=== PATIENT | male | born 1965 | race Caucasian/White ===

== ENCOUNTER 2020-04-25 13:08 | Inpatient (IN) ==
[2020-04-25] MEDS ORDERED: *HR* FentaNYL (PF) 100 MCG/2 ML VIAL ONE (13:37)
[2020-04-25] MEDS ORDERED: Ropivacaine/PF 0.5% 30 ML VIAL ONE (13:37)
[2020-04-25] MEDS ORDERED: *HR* Midazolam HCl 2 MG/2 ML VIAL ONE (13:37)
[2020-04-25] MEDS ORDERED: *HR* Promethazine 25 MG/ML VIAL IVP PRN (13:43)
[2020-04-25] MEDS ORDERED: Ondansetron 4 MG/2 ML VIAL IVP PRN ×2 (13:43→17:06)
[2020-04-25] MEDS ORDERED: CeFAZolin Syr 3,000MG/30 ML 3,000 MG/30 ML SYRINGE IVPB ONE (13:43)
[2020-04-25] MEDS ORDERED: *HR* OxyCODONE Immed Rel 5 MG TABLET PO PRN ×2 (13:43→17:06)
[2020-04-25] MEDS ORDERED: *HR* HYDROmorphone PF 0.5 MG/0.5 ML SYRINGE IVP PRN (13:43)
[2020-04-25] MEDS ORDERED: Ringers Solution, Lactated 1,000 ML IVC SCH ×2 (13:45→17:06)
[2020-04-25] MEDS ORDERED: Vancomycin 1,000 MG VIAL ONE (13:55)
[2020-04-25] MEDS ORDERED: Ethanol\\Acetic Acid\\Na Ace\\Ben 1,000 ML IRRIG.SOLN IR ONE (13:55)
[2020-04-25] MEDS ORDERED: Acetaminophen IV 1,000 MG/100 ML INFUS..BTL ONE (14:22)
[2020-04-25] MEDS ORDERED: Lidocaine -MPF 2% 2 ML VIAL ONE (14:26)
[2020-04-25] MEDS ORDERED: *HR* Propofol 200 MG/20 ML VIAL IVP ONE (14:26)
[2020-04-25] MEDS ORDERED: Dexamethasone 4 MG/ML VIAL ONE (14:49)
[2020-04-25] MEDS ORDERED: Ondansetron 4 MG/2 ML VIAL ONE (14:49)
[2020-04-25] MEDS ORDERED: Povidone-Iodine 45 ML, Sodium Chloride IRRigation 1,000 ML IR ONE (15:10)
[2020-04-25] MEDS ORDERED: Ketorolac 30 MG/ML VIAL ONE (15:37)
[2020-04-25 16:33] LABS: Hematocrit 42.8 % (37.5-50.1); Hemoglobin 14.3 g/dL (12.9-16.9)
[2020-04-25] MEDS ORDERED: D5% in Water 1,000 ML IVC PRN (17:06)
[2020-04-25] MEDS ORDERED: Acetaminophen 325 MG TABLET PO PRN (17:06)
[2020-04-25] MEDS ORDERED: *HR* OxyCODONE/APAP 5/325 TABLET PO PRN (17:06)
[2020-04-25] MEDS ORDERED: Dextrose Gel 15 GM/37.5 ML TUBE PO PRN ×2 (17:06)
[2020-04-25] MEDS ORDERED: Sennosides 8.6 MG TABLET PO PRN (17:06)
[2020-04-25] MEDS ORDERED: *HR* Dextrose 50 % in Water (Vial) 50 ML VIAL IVP PRN (17:06)
[2020-04-25] MEDS ORDERED: MOM Conc 10 ML UD.LIQ PO PRN (17:06)
[2020-04-25] MEDS ORDERED: Naloxone 0.4 MG/ML INJ IVP PRN (17:06)
[2020-04-25] MEDS ORDERED: *HR* Metformin 500 MG TABLET PO SCH (17:06)
[2020-04-25] MEDS ORDERED: Insulin LISPRO 300 UNITS/3 ML VIAL SQ SCH ×2 (17:06→21:00)
[2020-04-25] MEDS ORDERED: *HR* Enoxaparin 30 MG/0.3 ML SYRINGE SQ ONE (18:30)
[2020-04-25 19:16] VITALS: BP 129/81
[2020-04-25] MEDS ORDERED: ceFAZolin 3,000 MG in 0.9 % Sodium Chloride 100 ML IVPB SCH (22:00)
[2020-04-26] MEDS ORDERED: FLUoxetine 20 MG CAPSULE PO SCH (09:00)
[2020-04-26] MEDS ORDERED: atenoloL 50 MG TABLET PO SCH (09:00)
[2020-04-26] MEDS ORDERED: Aspirin Enteric Coated 81 MG Tablet PO SCH ×2 (09:00)
[2020-04-26] MEDS ORDERED: Losartan/HCTZ 50-12.5 TABLET PO SCH (09:00)
[2020-04-26] MEDS ORDERED: amLODIPine 5 MG TABLET PO SCH (09:00)
== END 2020-04-25 20:28 | disposition home or self-care (01) | DRG 483 ==
LOC: SAMDAY 13:08 → 3NENU 16:19
PROVIDERS: ADMIT Orthopaedic Surgery; ATTEND Orthopaedic Surgery

== ENCOUNTER 2020-07-21 12:19 | Inpatient (IN) ==
[2020-07-21] MEDS ORDERED: *HR* Propofol 200 MG/20 ML VIAL IVP ONE (12:38)
[2020-07-21] MEDS ORDERED: Lidocaine -MPF 2% 2 ML VIAL ONE (12:39)
[2020-07-21] MEDS ORDERED: Lidocaine HCL 4 ML Topical Solution (Laryng-O-Jet Kit Sterile Pak) TP ONE (12:39)
[2020-07-21] MEDS ORDERED: Ondansetron 4 MG/2 ML VIAL ONE (12:39)
[2020-07-21] MEDS ORDERED: *HR* FentaNYL (PF) 100 MCG/2 ML VIAL ONE ×2 (12:39→14:34)
[2020-07-21] MEDS ORDERED: *HR* Midazolam HCl 2 MG/2 ML VIAL ONE (12:39)
[2020-07-21] MEDS ORDERED: *HR* Succinylcholine 200 MG/10 ML VIAL IVP ONE (12:39)
[2020-07-21] MEDS ORDERED: CeFAZolin Syr 2,000MG/20 ML 2,000 MG/20 ML SYRINGE IVPB ONE (12:48)
[2020-07-21] MEDS ORDERED: Ringers Solution, Lactated 1,000 ML IVC SCH ×2 (13:00→16:43)
[2020-07-21] MEDS ORDERED: Ondansetron 4 MG/2 ML VIAL IVP PRN ×2 (13:05→16:43)
[2020-07-21] MEDS ORDERED: *HR* HYDROmorphone (PF) 1 MG/ML SYRINGE IVP PRN (13:05)
[2020-07-21] MEDS ORDERED: *HR* Labetalol 20 MG/4 ML SYRINGE IVP PRN (13:05)
[2020-07-21] MEDS ORDERED: Celecoxib 200 MG CAPSULE PO ONE (13:05)
[2020-07-21] MEDS ORDERED: Famotidine 20 MG/2 ML VIAL IVP ONE (13:05)
[2020-07-21] MEDS ORDERED: *HR* OxyCODONE Immed Rel 5 MG TABLET PO PRN ×2 (13:05→16:43)
[2020-07-21] MEDS ORDERED: Ipratropium/Albuterol Neb 3 ML IH ONE (13:09)
[2020-07-21] MEDS ORDERED: Ethanol\\Acetic Acid\\Na Ace\\Ben 1,000 ML IRRIG.SOLN IR ONE (13:23)
[2020-07-21] MEDS ORDERED: Vancomycin 1,000 MG VIAL ONE (13:23)
[2020-07-21] MEDS ORDERED: Ropivacaine/PF 0.5% 30 ML VIAL ONE (13:36)
[2020-07-21] MEDS ORDERED: ROPIVACAINE/PF/NS 0.25% 1 EACH SYRINGE INTRAART ONE (13:36)
[2020-07-21] MEDS ORDERED: ceFAZolin 1,000 MG in Water for inj. (sterile) 10 ML IVP ONE (15:34)
[2020-07-21] MEDS ORDERED: Povidone-Iodine 45 ML, Sodium Chloride IRRigation 1,000 ML IR ONE (15:55)
[2020-07-21] MEDS ORDERED: Insulin LISPRO 300 UNITS/3 ML VIAL SUBQ SCH ×2 (16:43→21:00)
[2020-07-21] MEDS ORDERED: Naloxone 0.4 MG/ML INJ IVP PRN (16:43)
[2020-07-21] MEDS ORDERED: *HR* OxyCODONE/APAP 5/325 TABLET PO PRN (16:43)
[2020-07-21] MEDS ORDERED: Sennosides 8.6 MG TABLET PO PRN (16:43)
[2020-07-21] MEDS ORDERED: D5% in Water 1,000 ML IVC PRN (16:43)
[2020-07-21] MEDS ORDERED: MOM Conc 10 ML UD.LIQ PO PRN (16:43)
[2020-07-21] MEDS ORDERED: *HR* Dextrose 50 % in Water (Vial) 50 ML VIAL IVP PRN (16:43)
[2020-07-21] MEDS ORDERED: Dextrose Gel 15 GM/37.5 ML TUBE PO PRN ×2 (16:43)
[2020-07-21 16:55] LABS: Hematocrit 43.4 % (37.5-50.1); Hemoglobin 14.8 g/dL (12.9-16.9)
[2020-07-21] MEDS ORDERED: *HR* Metformin 500 MG TABLET PO SCH (17:00)
[2020-07-21] MEDS ORDERED: *HR* Enoxaparin 30 MG/0.3 ML SYRINGE SQ SCH ×2 (18:00)
[2020-07-21 19:56] VITALS: BP 128/80
[2020-07-21] MEDS ORDERED: Budesonide/Formoterol 80/4.5 1 PUFF INH IH SCH (22:00)
[2020-07-21] MEDS ORDERED: CeFAZolin 2 GM/120 ML BAG IVPB SCH (22:00)
[2020-07-22] MEDS ORDERED: FLUoxetine 20 MG CAPSULE PO SCH (09:00)
[2020-07-22] MEDS ORDERED: amLODIPine 5 MG TABLET PO SCH (09:00)
[2020-07-22] MEDS ORDERED: Losartan/HCTZ 50-12.5 TABLET PO SCH (09:00)
[2020-07-22] MEDS ORDERED: atenoloL 50 MG TABLET PO SCH (09:00)
== END 2020-07-21 21:20 | disposition home or self-care (01) ==
LOC: SAMDAY 12:19 → 3NENU 16:36
PROVIDERS: ADMIT Orthopaedic Surgery; ATTEND Orthopaedic Surgery

== ENCOUNTER 2020-07-23 21:35 | Observation (INO) ==
[2020-07-23 22:49] LABS: Basophils # 0.1 K/mcL (0.0-0.2); Basophils % 0.6 %; Eosinophils % 0.2 %; Hematocrit 44.6 % (37.5-50.1); Hemoglobin 15.6 g/dL (12.9-16.9); Lymphocytes # 0.9 K/mcL (0.6-4.6); Lymphocytes % 8.6 %; Mean Corpuscular Hemoglobin 31.1 pg (28.0-33.3); Monocytes # 0.9 K/mcL (0.0-1.3); Monocytes % 8.8 %; Platelet Count 211 K/mcL (140-400); Red Blood Count 5.01 M/mcL (4.19-5.50); Red Cell Distribution Width 12.5 % (11.5-14.5); Segmented Neutrophils % 80.8 %; White Blood Count 9.9 K/mcL (4.3-11.1)
[2020-07-23 23:10] LABS: BUN/Creatinine Ratio 16 (6-26); Blood Urea Nitrogen 14 mg/dL (6-20); Calcium 9.4 mg/dL (8.6-10.3); Carbon Dioxide 24 mEq/L (23-29); Chloride 95 mEq/L (98-107); Glucose 242 mg/dL (70-105); Osmolality,Calculated 282 (280-300); Potassium 3.4 mEq/L (3.5-5.1); Sodium 132 mEq/L (136-145); eGFR For African Americans > 60 (> 60); eGFR For Non-African Americans > 60 (> 60)
[2020-07-23 23:11] LABS: Troponin I < 0.03 ng/mL (< 0.04)
[2020-07-24] MEDS ORDERED: Isovue-370 500 ML BOTTLE IVP ONE (00:16)
[2020-07-24] MEDS ORDERED: *HR* HYDROcodone/Acet 5/325 mg TABLET PO ONE (00:19)
[2020-07-24] MEDS ORDERED: Acetaminophen 325 MG TABLET PO ONE (00:20)
[2020-07-24] MEDS ORDERED: Dexamethasone Sodium Phos/PF 10 MG/ML VIAL IVP SCH (00:30)
[2020-07-24] MEDS ORDERED: Naloxone 0.4 MG/ML INJ IVP PRN (02:27)
[2020-07-24] MEDS ORDERED: Ondansetron 4 MG/2 ML VIAL IVP PRN (02:27)
[2020-07-24] MEDS ORDERED: Acetaminophen 325 MG TABLET PO PRN (02:27)
[2020-07-24] MEDS ORDERED: D5% in Water 1,000 ML IVC PRN (02:47)
[2020-07-24] MEDS ORDERED: Dextrose Gel 15 GM/37.5 ML TUBE PO PRN ×2 (02:47)
[2020-07-24] MEDS ORDERED: *HR* Dextrose 50 % in Water (Vial) 50 ML VIAL IVP PRN (02:47)
[2020-07-24] MEDS ORDERED: 0.9 % Sodium Chloride 1,000 ML IVC SCH (03:00)
[2020-07-24 03:45] LABS: Bilirubin,Urine Negative (Negative); Blood,Urine Negative (Negative); Clarity,Urine Clear (Clear); Color,Urine Light-Yellow (Yellow); Glucose,Urine (UA) >=1000 mg/dL (Normal); Ketones,Urine 20 mg/dL (Negative); Leukocyte Esterase,Urine Negative (Negative); Mucus,Urine Few per lpf (None-Few); Nitrite,Urine Negative (Negative); Protein,Urine 30 mg/dL (Neg-Trace); RBC,Urine 0-3 per hpf (0-3); Specific Gravity,Urine > 1.030 (1.010-1.025); Urobilinogen,Urine Normal (Normal); WBC,Urine 0-3 per hpf (0-3)
[2020-07-24] MEDS: Insulin LISPRO 300 UNITS/3 ML VIAL SUBQ SCH ×3 (03:59→11:35)
[2020-07-24] MEDS: *HR* Heparin 5,000 UNIT/ML VIAL SQ SCH ×2 (04:07→14:42)
[2020-07-24 07:07] VITALS: BP 149/94
[2020-07-24] MEDS: *HR* OxyCODONE Immed Rel 5 MG TABLET PO PRN ×2 (07:25→14:43)
[2020-07-24] MEDS ORDERED: FLUoxetine 20 MG CAPSULE PO SCH (09:00)
[2020-07-24] MEDS ORDERED: Losartan/HCTZ 50-12.5 TABLET PO SCH (09:00)
[2020-07-24] MEDS ORDERED: atenoloL 50 MG TABLET PO SCH (09:00)
[2020-07-24] MEDS ORDERED: amLODIPine 5 MG TABLET PO SCH (09:00)
[2020-07-24] MEDS ORDERED: Budesonide/Formoterol 80/4.5 1 PUFF INH IH SCH (10:00)
== END 2020-07-24 16:47 | disposition home health service (06) ==
LOC: EMEROOARM 21:35 → 2NENU 21:35 → SUATTDRO 07-24 01:58 → 2NENU 07-24 02:38
PROVIDERS: ADMIT Student in an Organized Health Care Education/Training Program; ATTEND Family Medicine